=== PATIENT | male | born 1950 | race Caucasian/White ===

== ENCOUNTER 2016-06-05 15:57 | Inpatient (IN) ==
[2016-06-05] MEDS ORDERED: Acetaminophen 325 MG TABLET PO PRN (19:04)
[2016-06-05] MEDS ORDERED: *HR* Morphine 2 MG/ML SYRINGE IVP PRN (19:04)
[2016-06-05] MEDS ORDERED: Ondansetron 4 MG/2 ML VIAL IVP PRN (19:04)
[2016-06-05] MEDS ORDERED: Naloxone 0.4 MG/ML INJ IVP PRN (19:04)
[2016-06-05] MEDS ORDERED: Ibuprofen 400 MG TABLET PO PRN (19:04)
[2016-06-05] MEDS ORDERED: D5% in Water 1,000 ML IV PRN (19:25)
[2016-06-05] MEDS ORDERED: *HR* Dextrose 50 % in Water (Syg) 50 ML SYRINGE IVP PRN (19:25)
[2016-06-05] MEDS ORDERED: Dextrose Gel 15 GM PO PRN ×2 (19:25)
--- NOTE | 2016-06-05 19:34 | Internal Med History&Physical ---
Date of Encounter: 06/05/16 Time of Encounter: 17:00 Assessment and Plan (1) Scrotal abscess Status: Acute Start broad-spectrum IV antibiotics. Consult urology. Follow-up blood cultures. I have discussed the case with urology who recommends systemic antibiotic treatment at this time. He is at high risk for morbidity and complications due to treatment with IV vancomycin which required intensive blood level monitoring for toxicity. (2) Essential hypertension Status: Acute Continue home meds with losartan and metoprolol. (3) Diabetes mellitus type 2, noninsulin dependent Status: Acute Start insulin sliding scale and long-acting insulin. Check hemoglobin A1c. (4) DVT prophylaxis Status: Acute Encourage early ambulation. Internal Medicine - H&P: HPI Chief complaint: Scrotal swelling and pain Admitted From: Intrahospital Transfer Plans for Post Hospital Care: Home History of present illness: Mr. Bernard is a 66 year old male with past medical history significant for hypertension and was transferred from [facility] for evaluation of scrotal rash swelling and pain and uncontrolled diabetes. He says that for the last 5 days he noticed increasing scrotal swelling which has become painful 3 days ago, pain is moderate to severe aching, improved by lying on the couch with his legs spread spread.. He denies any discharged but he noted several scattered skin lesions in the scrotal and inguinal area. Denies associated fevers chills and penile discharge. Denies any urinary changes. A 10 point review of systems was performed and found to be negative except as above Family history positive for CVA and the patient's mother Past medical history positive for essential hypertension Past Med Surg Social Fam HX - Past Medical History Medical history: hypertension, other Psychiatric history: no psych history - Social History Smoking Status: Former smoker Smokeless Tobacco Status: No Alcohol use: none Drug use: none - Family History Father Living Status: Age at : 70 Cause of : HTN Hx Family Cardiac Disorders: Yes Hx Family Respiratory Disorders: No Hx Family Cancer: No Hx Family GI Disorders: No Hx Family Genitourinary Disorders: No Hx Family Endocrine Disorder: No Hx Family Musculoskeletal Disorders: No Hx Family Neuromuscular Disorders: No Hx Family Neurologic Disorders: No Hx Family HEENT Disorders: No Hx Family Autoimmune Disorders: No Hx Family Reproductive Disorders: No Hx Family Psychosocial Disorders: No Hx Family Medical Disorders: No Internal Medicine - H&P: Meds Cetirizine HCl 10 mg PO DAILY 06/05/16 [History] Losartan Potassium [Cozaar] 50 mg PO DAILY 06/05/16 [History] Metoprolol Tartrate 50 mg PO BID 06/05/16 [History] Montelukast [Singulair] 10 mg PO DAILY 06/05/16 [History] Omeprazole [PriLOSEC] 40 mg PO DAILY 06/05/16 [History] Metformin [Glucophage] 1,000 mg PO BIDWM #120 tablet 06/07/16 [Rx] Sulfamethoxazole/Trimeth DS [Bactrim DS] 1 each PO BID 7 Days 06/07/16 [Rx] Allergies lisinopril Adverse Reaction (Verified 06/05/16 16:47) Cough All Systems PM: A 10-system review of systems was performed and is negative for pertinent findings except as documented above in the HPI. - Constitutional Vitals: Temp Pulse Resp BP Pulse Ox 97.3 F L 57 14 139/76 95 06/05/16 18:59 06/05/16 18:59 06/05/16 18:59 06/05/16 18:59 06/05/16 18:59 General appearance: Present: A&O X 3, no acute distress - Eye Eye exam: Present: PERRL, conjuntiva pink, sclera anicteric Pupils: Present: PERRL - Respiratory Respiratory exam: Present: CTAB. Absent: accessory muscle use, rales, rhonchi, wheezes - Cardiovascular Cardiovascular exam: Present: RRR, +S1, +S2. Absent: diastolic murmur, gallop, rubs, systolic murmur - GI/Abdominal GI/Abdominal exam: Present: normal bowel sounds, soft, no peritoneal signs. Absent: distended, tenderness - Additional comments: Uncircumcised penis with scrotal erythema and subcutaneous tissue edema. - Skin Additional comments: Scrotal erythema and 2 subcutaneous nodules in the left and right inguinal area with superficial crusted lesions, no drainage, no bleeding. Internal Med - H&P Results - Labs CBC & Chem 7: 06/06/16 05:00 06/07/16 07:57
[2016-06-05] MEDS ORDERED: Vancomycin 1,500 MG in D5% in Water 250 ML IVPB SCH (20:00)
[2016-06-05 20:02] LABS: Estimated Average Glucose > 355 mg/dl; Hemoglobin A1C >= 14.1 %
[2016-06-05] MEDS: 0.9 % Sodium Chloride 1,000 ML IVC SCH (21:10)
[2016-06-05] MEDS: Insulin DETEMIR 100 UNIT/ML X5UNITS SQ SCH (21:39)
[2016-06-05] MEDS: Insulin LISPRO 300 UNITS/3 ML VIAL SQ SCH (21:39)
[2016-06-05] MEDS: Vancomycin 1,500 MG in D5% in Water 250 ML IVPB SCH (22:50)
[2016-06-06 05:18] LABS: Basophils # 0.1 K/mcL (0.0-0.2); Eosinophils # 0.2 K/mcL (0.0-0.6); Eosinophils % 2.9 %; Hemoglobin 14.2 g/dL (12.9-16.9); Immature Granulocytes % 0.2 % (0-4); Lymphocytes # 2.1 K/mcL (0.6-4.6); Mean Corpuscular HGB Conc 34.6 g/dL (31.6-35.5); Mean Corpuscular Hemoglobin 28.6 pg (28.0-33.3); Mean Corpuscular Volume 82.5 fL (83.0-100.0); Mean Platelet Volume 10.5 fL (9.4-12.4); Monocytes # 0.6 K/mcL (0.0-1.3); Monocytes % 9.5 %; Neutrophils # 3.1 K/mcL (1.6-8.9); Platelet Count 160 K/mcL (140-400); Red Blood Count 4.97 M/mcL (4.19-5.50); Red Cell Distribution Width 12.6 % (11.5-14.5); Segmented Neutrophils % 51.4 %
[2016-06-06 05:47] LABS: Alanine Aminotransferase 61 Units/L (0-55); Albumin 2.9 g/dL (3.5-5.0); Albumin/Globulin Ratio 0.8 (1.1-2.2); Alkaline Phosphatase 91 Units/L (38-126); Aspartate Amino Transferase 55 Units/L (5-34); BUN/Creatinine Ratio 9 (6-26); Bilirubin,Total 1.5 mg/dL (0.2-1.2); Blood Urea Nitrogen 12 mg/dL (8-26); Calcium 8.3 mg/dL (8.6-10.8); Carbon Dioxide 24 mEq/L (19-29); Chloride 100 mEq/L (98-109); Globulin 3.5 g/dL (2.4-3.5); Glucose 287 mg/dL (70-99); Magnesium 1.7 mg/dL (1.6-2.6); Osmolality,Calculated 286 (280-300); Potassium 4.3 mEq/L (3.5-4.5); Sodium 133 mEq/L (136-145); Total Protein 6.4 g/dL (6.0-8.3); eGFR For African Americans > 60 (> 60); eGFR For Non-African Americans 54 (> 60)
[2016-06-06] MEDS: Insulin LISPRO 300 UNITS/3 ML VIAL SQ SCH ×6 (07:59→17:13)
[2016-06-06] MEDS: Loratadine 10 MG TABLET PO SCH (08:00)
[2016-06-06] MEDS: Piperacillin/Tazobactam 3.375 GM in D5% in Water (Mini-Bag+) 100 ML IVPB SCH ×4 (08:00→23:24)
--- NOTE | 2016-06-06 08:20 | Urology - Consult Note ---
Date of Encounter: 06/06/16 Time of Encounter: 08:18 - Assessment and Plan (1) Scrotal abscess Current Visit: Yes Status: Acute Assessment and plan: 66 year old man status post I&D of scrotum. Will monitor erythema in left groin. Continue antibiotics. Appreciate IM support. Urology CN:HPI Consult date: 06/06/16 Reason for consult Urology: Other (balanitis, scrotal infection) Requesting physician: Evert Jacobs History of present illness: Mr. Bernard is a 66-year-old gentleman who presents with concern for balanitis and a scrotal infection. He had been treating his balanitis for about a month with an antifungal cream. He has significant phimosis and has trouble retracting his foreskin. He is a known diabetic. He began to note left scrotal pain and swelling in the groin. He presented to the [facility] emergency department. A CT scan showed an inflamed left inguinal lymph node as well as a possible abscess within the left dependent scrotum. He was transferred to [facility] for further care. When I saw him on June 06, 2016 his scrotum did not show any evidence of fluctuance. The left inguinal region had an inflamed lymph node. I returned later in the afternoon and I noted some fluctuance in the scrotum at that point. After informed consent was obtained I injected local anesthetic around the scrotal abscess and made a small incision with 11 blade. Quarter inch packing strips are placed into the wound. Minimal purulence returned. I did aspirate the inguinal area, but no purulent fluid returned. He tolerated the procedure well. Past Med Surg Social Fam HX - Past Medical History Medical history: hypertension, other Psychiatric history: no psych history - Social History Smoking Status: Former smoker Smokeless Tobacco Status: No Alcohol use: none Drug use: none - Family History Father Living Status: Age at : 70 Cause of : HTN Hx Family Cardiac Disorders: Yes Hx Family Respiratory Disorders: No Hx Family Cancer: No Hx Family GI Disorders: No Hx Family Genitourinary Disorders: No Hx Family Endocrine Disorder: No Hx Family Musculoskeletal Disorders: No Hx Family Neuromuscular Disorders: No Hx Family Neurologic Disorders: No Hx Family HEENT Disorders: No Hx Family Autoimmune Disorders: No Hx Family Reproductive Disorders: No Hx Family Psychosocial Disorders: No Hx Family Medical Disorders: No Medications and Allergies Cetirizine HCl [Cetirizine HCl] 10 mg PO DAILY 06/05/16 [History] Losartan Potassium [Cozaar] 50 mg PO DAILY 06/05/16 [History] Metoprolol Tartrate 50 mg PO BID 06/05/16 [History] Montelukast [Singulair] 10 mg PO DAILY 06/05/16 [History] Omeprazole [PriLOSEC] 40 mg PO DAILY 06/05/16 [History] Allergies lisinopril Adverse Reaction (Verified 06/05/16 16:47) Cough Review of Systems - Constitutional no chills, no fever(s) - EENT Nose, mouth and throat: no dizziness - Cardiovascular no chest pain - Respiratory no dyspnea - Gastrointestinal no nausea, no vomiting - Genitourinary no flank pain, no hematuria - Musculoskeletal no back pain - Integumentary no erythema, no rash - Neurological no weakness - Psychiatric no suicidal ideation - Hematologic/Lymphatic no easy bleeding - Allergic/Immunologic no wheezing Exam Initial Vital Signs Temp Pulse Resp BP Pulse Ox 97.2 F L 50 16 144/81 97 06/05/16 16:47 06/05/16 16:47 06/05/16 16:47 06/05/16 16:47 06/05/16 16:47 - General physical appearance Present: well developed, well nourished, no distress - Eyes Absent: icteric - ENT Present: normal nares - Neck Present: trachea midline - Respiratory Present: normal respiratory effort - Cardiovascular Cardiovascular exam IM: RRR - Abdomen Abdomen: Present: soft - Genitourinary other (There is mild balanitis, but significant phimosis. There is an inflamed left inguinal lymph node. I palpate induration in the left hemiscrotum, approximately 1 cm in diameter. I do not palpate any fluctuance. There is no scrotal erythema. Do not see any evidence of gangrene.) Urology Results - Labs 06/06/16 05:00 06/07/16 07:57 Abnormal lab results MCV 82.5 fL (83.0-100.0) L 06/06/16 05:00 Sodium 133 mEq/L (136-145) L 06/06/16 05:00 Creatinine 1.32 mg/dL (0.72-1.25) H 06/06/16 05:00 Est GFR (Non-Af Amer) 54 (> 60) L 06/06/16 05:00 Glucose 287 mg/dL (70-99) H 06/06/16 05:00 POC Glucose 248 (58-89) H 06/06/16 07:08 Hemoglobin A1c >= 14.1 % (-5.6) H 06/05/16 19:48 Calcium 8.3 mg/dL (8.6-10.8) L 06/06/16 05:00 Total Bilirubin 1.5 mg/dL (0.2-1.2) H 06/06/16 05:00 AST 55 Units/L (5-34) H 06/06/16 05:00 ALT 61 Units/L (0-55) H 06/06/16 05:00 Albumin 2.9 g/dL (3.5-5.0) L 06/06/16 05:00 Albumin/Globulin Ratio 0.8 (1.1-2.2) L 06/06/16 05:00 Diabetes panel 06/05/16 06/06/16 Range/Units 19:48 05:00 Sodium 133 L (136-145) mEq/L Potassium 4.3 (3.5-4.5) mEq/L Chloride 100 (98-109) mEq/L Carbon Dioxide 24 (19-29) mEq/L BUN 12 (8-26) mg/dL Creatinine 1.32 H (0.72-1.25) mg/dL Glucose 287 H (70-99) mg/dL Hemoglobin A1c >= 14.1 H ( - 5.6) % Calcium 8.3 L (8.6-10.8) mg/dL AST 55 H (5-34) Units/L ALT 61 H (0-55) Units/L Alkaline Phosphatase 91 (38-126) Units/L Albumin 2.9 L (3.5-5.0) g/dL Calcium panel 06/06/16 Range/Units 05:00 Calcium 8.3 L (8.6-10.8) mg/dL Albumin 2.9 L (3.5-5.0) g/dL Pituitary panel 06/06/16 Range/Units 05:00 Sodium 133 L (136-145) mEq/L Potassium 4.3 (3.5-4.5) mEq/L Chloride 100 (98-109) mEq/L Carbon Dioxide 24 (19-29) mEq/L BUN 12 (8-26) mg/dL Creatinine 1.32 H (0.72-1.25) mg/dL Glucose 287 H (70-99) mg/dL Calcium 8.3 L (8.6-10.8) mg/dL Adrenal panel 06/06/16 Range/Units 05:00 Sodium 133 L (136-145) mEq/L Potassium 4.3 (3.5-4.5) mEq/L Chloride 100 (98-109) mEq/L Carbon Dioxide 24 (19-29) mEq/L BUN 12 (8-26) mg/dL Creatinine 1.32 H (0.72-1.25) mg/dL Glucose 287 H (70-99) mg/dL Calcium 8.3 L (8.6-10.8) mg/dL Total Bilirubin 1.5 H (0.2-1.2) mg/dL AST 55 H (5-34) Units/L ALT 61 H (0-55) Units/L Alkaline Phosphatase 91 (38-126) Units/L Albumin 2.9 L (3.5-5.0) g/dL All other labs normal. - Imaging CT scan - abdomen: report reviewed, image reviewed CT scan - pelvis: report reviewed, image reviewed Procedures:Urology - Abscess I/D Consent obtained: written consent Site: scrotum Side (if applicable): left Technique: incised with #11 blade Packing used?: plain Complications: none Consult Discharge Plan - Plan Referrals: Dakota John, [employer] [Primary Care Provider] -
[2016-06-06] MEDS: Vancomycin 1,500 MG in D5% in Water 250 ML IVPB SCH ×2 (11:59→21:32)
[2016-06-06] MEDS: 0.9 % Sodium Chloride 1,000 ML IVC SCH (12:00)
--- NOTE | 2016-06-06 17:19 | Internal Med Progress Note ---
Date of Encounter: 06/06/16 Time of Encounter: 17:15 - Assessment and plan (1) Scrotal abscess Current Visit: Yes Status: Acute Assessment and plan: started on IV antibiotics will continue the same, no leucocytosis or fever. urology consulted, s.p I and D, minimal drainage will follow recommendtaios denies any pain or discomfort at this time will follow cx results. (2) Diabetes Current Visit: Yes Status: Acute Assessment and plan: unknown to the patinet a1c >14 currently have him on levemir and lisro sliding will continue Qualifiers: Diabetes mellitus type: type 2 Qualified Code(s): E11.9 - Type 2 diabetes mellitus without complications - Time Spent With Patient 25 - 35 minutes - Subjective Interval history: seen at the bedside, admitted for scrotal abscess, denies any pain atthi stime no fever. no difficulty pasing urine. - Constitutional Vitals: Temp Pulse Resp BP Pulse Ox 98.2 F 53 18 145/74 98 06/06/16 15:27 06/06/16 15:27 06/06/16 15:27 06/06/16 15:27 06/06/16 15:27 General appearance: Present: A&O X 3, no acute distress Exam: neck- supple chest- b/l clear, no added sounds CVS-s1 and s2, no mr/g// abd-soft, non tender ,bs are present swollen scrotal area, no discharge at present, tender. - Extremities Exam Extremities exam: Present: normal inspection, full ROM, normal capillary refill. Absent: tenderness, joint swelling - Back Exam Back exam: Present: normal inspection, full ROM. Absent: muscle spasm - Neurological Exam Neurological exam: Present: alert, oriented X3, CN II-XII intact - Psychiatric Psychiatric exam: Present: normal affect, normal mood - Skin Skin exam: Present: warm, dry, intact, normal color Internal Medicine: Result - Labs CBC & Chem 7: 06/06/16 05:00 06/06/16 05:00 Labs: Short CBC 06/06/16 Range/Units 05:00 WBC 6.1 (4.3-11.1) K/mcL Hgb 14.2 (12.9-16.9) g/dL Hct 41.0 (37.5-50.1) % Plt Count 160 (140-400) K/mcL Neutrophils # 3.1 (1.6-8.9) K/mcL BMP 06/06/16 05:00 Sodium 133 L Potassium 4.3 Chloride 100 Carbon Dioxide 24 BUN 12 Creatinine 1.32 H Glucose 287 H Calcium 8.3 L Liver Function 06/06/16 Range/Units 05:00 Total Bilirubin 1.5 H (0.2-1.2) mg/dL AST 55 H (5-34) Units/L ALT 61 H (0-55) Units/L Alkaline Phosphatase 91 (38-126) Units/L Albumin 2.9 L (3.5-5.0) g/dL Consult Discharge Plan - Plan Referrals: Dakota John, CONTENT COORDINATOR [Primary Care Provider] -
[2016-06-06] MEDS: Insulin DETEMIR 100 UNIT/ML X5UNITS SQ SCH (21:33)
[2016-06-07 07:45] VITALS: BP 130/79
[2016-06-07] MEDS: Piperacillin/Tazobactam 3.375 GM in D5% in Water (Mini-Bag+) 100 ML IVPB SCH (07:58)
[2016-06-07] MEDS: Insulin LISPRO 300 UNITS/3 ML VIAL SQ SCH ×2 (07:59)
[2016-06-07] MEDS: Loratadine 10 MG TABLET PO SCH (08:00)
[2016-06-07 08:46] LABS: BUN/Creatinine Ratio 9 (6-26); Blood Urea Nitrogen 12 mg/dL (8-26); Calcium 8.8 mg/dL (8.6-10.8); Carbon Dioxide 26 mEq/L (19-29); Chloride 100 mEq/L (98-109); Glucose 258 mg/dL (70-99); Osmolality,Calculated 289 (280-300); Potassium 4.2 mEq/L (3.5-4.5); Sodium 135 mEq/L (136-145); eGFR For African Americans > 60 (> 60); eGFR For Non-African Americans 56 (> 60)
--- NOTE | 2016-06-07 09:01 | Discharge Summary ---
<Cameron Martinez - Last Filed: 06/07/16 09:58> - Discharge Diagnosis (1) Scrotal abscess Status: Acute - Discharge Medications Prescriptions: Metformin [Glucophage] 1,000 mg PO BIDWM #120 tablet Sulfamethoxazole/Trimeth DS [Bactrim DS] 1 each PO BID 7 Days Home Medications: Cetirizine HCl 10 mg PO DAILY 06/05/16 [History] Losartan Potassium [Cozaar] 50 mg PO DAILY 06/05/16 [History] Metoprolol Tartrate 50 mg PO BID 06/05/16 [History] Montelukast [Singulair] 10 mg PO DAILY 06/05/16 [History] Omeprazole [PriLOSEC] 40 mg PO DAILY 06/05/16 [History] Metformin [Glucophage] 1,000 mg PO BIDWM #120 tablet 06/07/16 [Rx] Sulfamethoxazole/Trimeth DS [Bactrim DS] 1 each PO BID 7 Days 06/07/16 [Rx] Allergies/Adverse Reactions: Allergies lisinopril Adverse Reaction (Verified 06/05/16 16:47) Cough Date of admission: 06/05/16 19:40 Primary care physician: Dakota John CNP Consults: 06/05/16 19:22 Consult to Physician [CONS] Routine Consulting Provider: Cameron Martinez Reason for Consult: scrotal cellulitis Time Notified: 19:23 Call Completed: Yes - Patient Status Disposition: Home, Self-Care Condition: Fair - Discharge Instructions Instructions: Metformin (By mouth), How to Check Your Blood Sugar (GEN), Diabetic Hypoglycemia (GEN), Diabetic Neuropathy (GEN), Acute Wound Care (GEN) Follow Up With: Dakota John CNP [Primary Care Provider] - Cameron Martinez MD [Partnered Physician] - (1 week for a wound check. Web Request will be entered for this appt. Thank you) Additional Instructions: Pack inguinal wound with 1/4" packing strips twice daily. Please provide supplies. Hospital course: Mr. Bernard is a 66 year old male - Time Spent with Patient Total time spent providing and/or coordinating discharge services: - Constitutional Vitals: Temp Pulse Resp BP Pulse Ox 97.6 F 54 18 130/79 98 06/07/16 07:35 06/07/16 07:35 06/07/16 07:35 06/07/16 07:35 06/07/16 07:35 <Julissa Corbin - Last Filed: 06/07/16 17:23> Date of Encounter: 06/07/16 Time of Encounter: 08:58 - Discharge Diagnosis (1) Scrotal abscess Priority: Primary Status: Acute (2) Diabetes Priority: Primary Status: Acute Qualifiers: Diabetes mellitus type: type 2 Qualified Code(s): E11.9 - Type 2 diabetes mellitus without complications Date of admission: 06/05/16 19:40 Primary care physician: Dakota John CNP Consults: 06/05/16 19:22 Consult to Physician [CONS] Routine Consulting Provider: Cameron Martinez Reason for Consult: scrotal cellulitis Time Notified: 19:23 Call Completed: Yes Discharging clinician: Julissa Corbin Anticipated date of discharge: 06/07/16 - Patient Status Functional capacity at discharge: independent ambulation Overall status at discharge: patient is back to baseline - Diet and Activity Activity: resume usual activities as tolerated Diet: advance to your usual diet, diabetic diet Interval History: Mr. Bernard is a 66 year old male with past medical history significant for hypertension and was transferred from [facility] for evaluation of scrotal rash swelling and pain and uncontrolled diabetes. He says that for the last 5 days he noticed increasing scrotal swelling which has become painful 3 days ago, pain is moderate to severe aching, improved by lying on the couch with his legs spread spread.. He denies any discharged but he noted several scattered skin lesions in the scrotal and inguinal area. Denies associated fevers chills and penile discharge. Denies any urinary changes. he was admitted for the scrotal abscess. urology was consulted, he was started on emperical IV antibiotics he underwent I and D bedside,which did not have much to drain. he is stable to be dc today , will dc on oral bactrim for 7 days. he is asymptomatic at [facility], will need dressing changed twice a day as per urology. HE was given f/u with urology in 1 week for wound check. It was also noted that his A1c is 14, he is not aware that he has DM. he was given insulin coverage while inpt. and will dc him on metformin, he was advised to f/u with his PCP for meidication adjustment. Hospital course: Mr. Bernard is a 66 year old male Time spent discussing smoking cessation with patient: more than 10 minutes - Time Spent with Patient Total time spent providing and/or coordinating discharge services: Greater than 30 minutes - Constitutional Vitals: Temp Pulse Resp BP Pulse Ox 97.6 F 54 18 130/79 98 06/07/16 07:35 06/07/16 07:35 06/07/16 07:35 06/07/16 07:35 06/07/16 07:35 General appearance: Present: A&O X 3, no acute distress Exam: Exam: neck- supple chest- b/l clear, no added sounds CVS-s1 and s2, no mr/g// abd-soft, non tender ,bs are present swollen scrotal area, no discharge at present, tender. Extremities exam: Present: normal inspection, full ROM, normal capillary refill. Absent: tenderness, joint swelling
--- NOTE | 2016-06-07 09:57 | Urology Progress Note ---
Date of Encounter: 06/07/16 Time of Encounter: 09:54 - Assessment and Plan (1) Scrotal abscess Current Visit: Yes Status: Acute Assessment and plan: I performed another I&D of the inguinal region today. Under sterile conditions and local anesthetic was infiltrated into the left groin. An 11 blade was used to open the area where the sinus drainage was. I utilized a Q-tip to explore the pocket and it was fairly small. The wound was then packed with a quarter inch packing strip. He tolerated procedure well. He can be discharged home today. He will need to change his dressings twice a day with repeat packing. He can follow-up with me in 1 week for a wound check. Progress Note Narrative: Doing well today. Glucose is improved. He tolerated the I and D yesterday. His groin erythema is showing some fluctuance and drainage from a small sinus. Objective Initial Vital Signs Temp Pulse Resp BP Pulse Ox 97.2 F L 50 16 144/81 97 06/05/16 16:47 06/05/16 16:47 06/05/16 16:47 06/05/16 16:47 06/05/16 16:47 - General physical appearance Present: well developed, well nourished, no distress - Respiratory Present: normal respiratory effort. Absent: other (left inguinal region has some fluctuance and drainage now. Will need to do I&D.) - Abdomen Present: soft - Genitourinary Present: other (Phimosis.) - Labs 06/06/16 05:00 06/07/16 07:57 Diabetes panel 06/07/16 Range/Units 07:57 Sodium 135 L (136-145) mEq/L Potassium 4.2 (3.5-4.5) mEq/L Chloride 100 (98-109) mEq/L Carbon Dioxide 26 (19-29) mEq/L BUN 12 (8-26) mg/dL Creatinine 1.28 H (0.72-1.25) mg/dL Glucose 258 H (70-99) mg/dL Calcium 8.8 (8.6-10.8) mg/dL Calcium panel 06/07/16 Range/Units 07:57 Calcium 8.8 (8.6-10.8) mg/dL Pituitary panel 06/07/16 Range/Units 07:57 Sodium 135 L (136-145) mEq/L Potassium 4.2 (3.5-4.5) mEq/L Chloride 100 (98-109) mEq/L Carbon Dioxide 26 (19-29) mEq/L BUN 12 (8-26) mg/dL Creatinine 1.28 H (0.72-1.25) mg/dL Glucose 258 H (70-99) mg/dL Calcium 8.8 (8.6-10.8) mg/dL Adrenal panel 06/07/16 Range/Units 07:57 Sodium 135 L (136-145) mEq/L Potassium 4.2 (3.5-4.5) mEq/L Chloride 100 (98-109) mEq/L Carbon Dioxide 26 (19-29) mEq/L BUN 12 (8-26) mg/dL Creatinine 1.28 H (0.72-1.25) mg/dL Glucose 258 H (70-99) mg/dL Calcium 8.8 (8.6-10.8) mg/dL Consult Discharge Plan - Plan Referrals: Dakota John CNP [Primary Care Provider] - Cameron Martinez MD [Partnered Physician] - Prescriptions: Metformin [Glucophage] 1,000 mg PO BIDWM #120 tablet Sulfamethoxazole/Trimeth DS [Bactrim DS] 1 each PO BID 7 Days
[2016-06-07] MEDS ORDERED: FLU VACC QS2016-17 36MOS UP/PF 0.5 ML SYRINGE IM ONE (10:36)
[2016-06-07] MEDS ORDERED: Aminoglycoside Consult 1 EACH MC ONE (12:44)
== END 2016-06-07 12:45 | disposition home or self-care (01) | DRG 728 ==
LOC: 3ANU → SUATTDRO 19:40
PROVIDERS: ADMIT Internal Medicine; ATTEND Internal Medicine Endocrinology, Diabetes & Metabolism